=== PATIENT | female | born 1995 | race Two or more races ===

== ENCOUNTER → 2025-02-20 | Outpatient (CLI) | payer MEDICAID, SELFPAY ==
--- NOTE | 2025-02-20 11:00 | XR_ITS ---
Examination: Lumbar spine 3 views Technique one AP lateral coned lateral lower lumbar spine 3 views Date and time: February 20, 2025 1219 hours INDICATIONS: Lower left-sided back pain 5 years after fall IMPRESSION: No lumbar fracture Advanced disc narrowing L4-L5 moderate disc narrowing L5-S1 No spondylolisthesis IMPRESSION: Advanced degenerative disc disease L4-L5 Moderate degenerative disc disease L5-S1
== END | disposition home or self-care (01) ==
PROVIDERS: PCP Family Medicine
DX: M51.360 Other intervertebral disc degeneration, lumbar region with discogenic back pain only (principal); M51.370 Other intervertebral disc degeneration, lumbosacral region with discogenic back pain only; G89.29 Other chronic pain
CPT/HCPCS: 72100

== ENCOUNTER 2025-03-21 08:04 | Emergency (ER) | payer MEDICAID, SELFPAY ==
--- NOTE | 2025-03-21 08:24 | XR_ITS ---
Examination: Knee, left , 3 views Technique: Knee AP, lateral, oblique 3 views Date and time of exam: March 21, 2025 0839 hours INDICATIONS: Knee pain beginning 2 days ago. FINDINGS: No fracture or dislocation Moderate knee effusion No ossified joint bodies IMPRESSION: No fracture Moderate knee effusion
[2025-03-21 08:28] VITALS: BP 111/79; PULSE 81; RESP 16; TEMP 37.1; O2SAT 98
[2025-03-21] MEDS: IBUPROFEN TAB 600 MG TABLET PO (08:32)
--- NOTE | 2025-03-21 08:35 | EDNOTE_ITS ---
Lower Extremity Injury RME/HPI General Chief Complaint: Extremity Injury, Lower Stated Complaint: LEFT KNEE PAIN X3DAYS Time Seen by Provider: 03/21/25 08:05 Arrival date/time: 03/21/25 08:04 29-year-old female presents to the emergency department today stating she was walking on the treadmill approximately 3 days ago and developed pain in her left knee patient reports no direct trauma patient does report pain with flexion and extension of the knee Limitations: no limitations Related Data Previous Rx's ?Medication ?Instructions ?Recorded ibuprofen 600 mg tablet 600 mg PO Q6H #30 tabs 03/21 Allergies Allergy/AdvReac Type Severity Reaction Status Date / Time Penicillins Allergy Intermediate Rash Verified 03/21/25 08:07 Review of Systems Review of Systems Narrative Review of Systems: Review of systems negative except as outlined in the HPI. Musculoskeletal Musculoskeletal: Reports system reviewed and no additional complaints, except as documented, Reports abnormal gait, Reports arthralgias, Denies deformity, Denies numbness, Reports stiffness and Denies tingling Neurologic Neurologic: Reports abnormal gait, Denies numbness and Denies tingling Past Medical History Past Medical History NEUROLOGIC: Negative Neurological Disorders CARDIAC: Negative Cardiac Disorders or Congestive Heart Failure RESPIRATORY: Negative Chronic Obstructive Pulmonary Disease (COPD) GENITOURINARY: Negative Renal Disease ENDOCRINE: Negative Diabetes Mellitus Type 1 or Diabetes Mellitus Type 2 Social History SMOKING STATUS: Never smoker SUBSTANCE USE: marijuana ED Exam General Limitations: Present no limitations General appearance: Present alert and in no apparent distress Head Head exam: Present atraumatic Eye Eye exam: Present normal appearance, PERRL and EOMI ENT ENT exam: Present normal exam, normal oropharynx and mucous membranes moist Neck Neck exam: Present normal inspection, full ROM and trachea midline Chest Chest inspection: Present normal inspection and symmetric chest wall rise Respiratory Respiratory exam: Present normal lung sounds bilaterally Cardiovascular Cardiovascular exam: Present regular rate, normal rhythm and normal heart sounds Abdominal Exam Abdominal exam: Present soft and normal bowel sounds Extremities Exam Extremities exam: Present full ROM, tenderness, normal capillary refill and joint swelling; Absent pedal edema or calf tenderness Back Exam Back exam: Present normal inspection and full ROM Neurological Exam Neurological exam: Present alert, oriented X3 and CN II-XII intact Psychiatric Psychiatric exam: Present normal affect and normal mood Skin Skin exam: Present warm, dry, intact and normal color Course Quality Measures none Orders Category Date Time Status Crutches .NOW Care 03/21/25 09:05 Completed sukumar wrap [Splint / Immobilizer] STAT Care 03/21/25 09:05 Completed XR knee LT 3V Stat Exams 03/21/25 08:24 Completed Ibuprofen Tab [Motrin Tab] Med 03/21/25 08:24 Discontinued 600 mg PO X1 ONE Vital Signs Vital signs: Vital Signs Temperature 98.7 F 03/21/25 08:28 Pulse Rate 81 03/21/25 08:28 Respiratory Rate 16 03/21/25 08:28 Blood Pressure 111/79 03/21/25 08:28 Pulse Oximetry (%) 98 03/21/25 08:28 Oxygen Delivery Method Room Air 03/21/25 08:28 Extremity Injury, Lower MDM Narrative MDM Narrative:: 29-year-old female presents to the emergency department today stating she was walking on the treadmill approximately 3 days ago and developed pain in her left knee patient reports no direct trauma patient does report pain with flexion and extension of the knee On exam patient well-appearing patient is not appear ill or toxic in no acute distress Patient does have pain with flexion extension of the knee but patient is ambulatory Imaging of the left knee obtained no acute fracture dislocation noted patient placed in Sukumar wrap and given crutches as well as ibuprofen Patient instructured to have an outpatient MRI if pain persist or worsens Patient data External records reviewed:: [facility] previous records Clinical information provided by:: patient Social determinants that could affect healthcare access:: none Patient has the following chronic illnesses:: None How is presenting disease/condition affected by chronic disease/condition?: no chronic disease Evaluation data The following diagnostics were reviewed and interpreted by me:: radiology exam(s) Lab and/or radiology exams considered but not ordered:: Radiology obtain Interpretation Summary: Reviewed by me Medications / Prescriptions Medications or Prescriptions considered but not ordered:: Given Medication administrations:: Medication Administration History Discontinued Medications Ibuprofen (Ibuprofen Tab 600 Mg Tablet) 600 mg PO X1 ONE Stop: 03/21/25 08:25 Last Admin: 03/21/25 08:32 Dose: 600 mg Documented By: EDUARDO Given Consultations Consultation(s) initiated? (list below): No Diagnosis Extremity Injury, Lower Differential Diagnosis: acute internal derangement of knee and other Most likely diagnosis given after review of the tests above:: Knee sprain Admission Indicated Admission indicated?: not indicated Admission Request Was there a request for admission?: No Disposition Plan Disposition Plan: Discharge Discharge Attestation Discharge Attestation: The patient and all family members were given an opportunity to ask questions and understood the discharge instructions. Discharge instructions specifically effects, indications for sooner follow up or return to the emergency department, and the expected course of current diagnosis. Patient condition: Stable Discharge Plan Plan Patient Disposition: HOME (Self Care) Discharge Disposition comment: Stable Prescriptions/Referrals Prescriptions/Med Rec: New ibuprofen 600 mg tablet 600 mg PO Q6H Qty: 30 0RF Referrals: Effie Patel [Primary Care Provider] - 03/22/25 Problem List Clinical Impression: Effusion of knee joint, left Patient/Caregiver Discharge Instructions Education Materials: ED Knee Effusion Additional Instructions: Please follow up with your primary care doctor in the next 24-48hrs for any worsening symptoms return here immediately If pain persists or worsens he will need an MRI for further evaluation Print Language: Tamazight Stand Alone Forms: [employer] Award Info., Patient Portal Info Letter PA/SHELLEY Supervising Physician RENZO/SHELLEY Supervising Physician: dr patel
== END 2025-03-21 09:11 | disposition home or self-care (01) ==
PROVIDERS: Emergency Provider Emergency Medicine; PCP Nurse Practitioner Family
DX: M25.462 Effusion, left knee (principal); Y93.A1 Activity, exercise machines primarily for cardiorespiratory conditioning
CPT/HCPCS: 73562; 99283; A9270

== ENCOUNTER → 2025-04-19 | Outpatient (CLI) | payer MEDICAID, SELFPAY ==
--- NOTE | 2025-04-19 07:00 | XR_ITS ---
Examination: MRI lumbar spine without contrast Date and time of exam: April 19, 2025 0716 hours INDICATIONS: Lower back pain radiating to the left foot and leg one year Technique: Multiple MRI axial and sagittal sections lumbar spine. Sagittal T2-weighted images, TR 3500, TE 118 T1 weighted transverse sections, TR 688 T8.5, T2-weighted sagittal sections T1 weighted sagittal sections TR 621, TE 30 T2 axial sections, TR 4, 190, TE 84. Findings: Adequate alignment lumbar vertebral bodies Moderate disc narrowing L4-L5 Disc desiccation L4-L5, L5-S1 L5-S1 6 mm partially extruded central lumbar disc L4-L5 severe spinal stenosis, 12 mm extruded central paracentral disc severely indenting the thecal sac displacing the right and left L5 nerve roots More cephalad levels unremarkable IMPRESSION: L5-S1 6 mm partially extruded central lumbar disc bulge L4-L5 severe spinal stenosis, 12 mm extruded central paracentral disc severely indenting the thecal sac
== END | disposition home or self-care (01) ==
LOC: SMRI 06:58
PROVIDERS: PCP Nurse Practitioner Family; Referring Provider Chiropractor; Visit Provider Chiropractor
DX: M51.360 Other intervertebral disc degeneration, lumbar region with discogenic back pain only (principal); M51.26 Other intervertebral disc displacement, lumbar region; M48.061 Spinal stenosis, lumbar region without neurogenic claudication
CPT/HCPCS: 72148

== ENCOUNTER → 2025-06-08 | Outpatient (CLI) | payer MEDICAID, SELFPAY ==
--- NOTE | 2025-06-08 12:56 | XR_ITS ---
Examination: Lumbar spine 7 views TECHNIQUE: AP, lateral, standing lateral flexion, standing lateral extension, coned lateral lower lumbar spine, RPO, LPO 7 views Date and time: June 08, 2025 1328 hours INDICATIONS: Lower back pain beginning 5 years ago. FINDINGS: Satisfactory alignment lumbar vertebral bodies No lumbar fracture. Moderate disc narrowing L4-L5, L5-S1 Significantly reduced range of motion between flexion and extension IMPRESSION: Moderate degenerative disc disease L4-L5, L5-S1
== END | disposition home or self-care (01) ==
PROVIDERS: PCP Nurse Practitioner Family; Referring Provider Nurse Practitioner; Visit Provider Nurse Practitioner
DX: M51.370 Other intervertebral disc degeneration, lumbosacral region with discogenic back pain only (principal); M51.360 Other intervertebral disc degeneration, lumbar region with discogenic back pain only
CPT/HCPCS: 72114